=== PATIENT | male | born 1965 | race Caucasian/White ===

== ENCOUNTER 2025-01-27 07:08 | Emergency (ER) | payer OTHER ==
--- OUTSIDE RECORDS SUMMARY | 2025-01-27 07:11 | XMS REPORT | Continuity of Care Document ---
Author Name Unknown Address [address] [facility] [address] [place] [address] [facility] Address [address] [facility]. [address] [place] [address] Care Team Providers Care Librarian Name Role Phone DARIANA RAYMOND Primary Care Physician Yajairaa LAUREN Land Attending Clinician Unavailable Doctor Unassigned, [place] Attending Clinician U Bhumi Monet Attending Clinician [phone] Coco Guzman Attending Clinician [phone] MAGDALENA TORIBIO Attending Clinician Unavailab Magdalena Campos DO Attending Clinician Kaleb Dsouza MD Attending Clinician [phone] KALEB DSOUZA Attending Clinician Unavail able KALEB DSOUZA Attending Clinician Unavail able MAGDALENA TORIBIO Admitting Clinician Unavailab le Payers Payer Name Policy Type Policy Number Effective Date Expirati on Date Source [facility] [id number] 2022 00:00:00 Problems Condition Name Condition Details Condition Category Status Onset Date Resolution Date Last Treatment Date Treating Clinician Comments Source Gastroesop hageal reflux disease, unspecifie d whether esophagiti s present Gastroesop hageal reflux disease, unspecifie d whether esophagiti s present Disease Active 02-12 00:00: 00 Overview: Formattin g of this note might be different from the original. Added automatic ally from request for surgery [id number] [facility] Dysphagia, pharyngoes ophageal phase Dysphagia, pharyngoes ophageal phase Disease Active 02-12 00:00: 00 Overview: Formattin g of this note might be different from the original. Added automatic ally from request for surgery [id number] [facility] Family history of colon cancer Family history of colon cancer Disease Active 02-12 00:00: 00 Overview: Formattin g of this note might be different from the original. Added automatic ally from request for surgery [id number] [facility] Brachial neuritis or radiculiti s Brachial neuritis or radiculiti s Disease Active 02-20 00:00: 00 Overview: Formattin g of this note might be different from the original. Cervical/ LSICD10 Diagnosis Term [employer] [facility] Allergies, Adverse Reactions, Alerts Allergy Name Allergy Type Status Severity Reaction(s) Onset Date Inactive Date Treating Clinician Comments Source Penicill ins Propensi ty to adverse reaction s Active Unknown - See comments 12-27 00:00: 00 convulsio ns [facility] CODEINE DRUG INGREDI Active Unknown-Cmnt 12-27 00:00: 00 [facility] PENICILL INS Drug Class Active Unknown-Cmnt 12-27 00:00: 00 [facility] Penicill ins Propensi ty to adverse reaction s Active Unknown - See comments 12-27 00:00: 00 convulsio ns [facility] Codeine Propensi ty to adverse reaction s Active Unknown - See comments 12-27 00:00: 00 Eye swelling and itching [facility] Penicill ins Propensi ty to adverse reaction s Active Unknown - See comments 12-27 00:00: 00 convulsio ns [facility] Social History Social Habit Start Date Stop Date Quantity Comments Source [facility] to SARS-CoV-2 (event) 2022-12-06 00:00:00 2022-12-16 14:18:00 Not sure [facility] Alcohol intake 2021-01-20 00:00:00 2021-01-20 00:00:00 0 /d [facility] History of Social function 2020-07-02 00:00:00 2020-07-02 00:00:00 [facility] Tobacco Comment 2016-11-11 00:00:00 2016-11-11 00:00:00 2-3 PPD x's 30, quit smoking in 2004 [facility] Alcoholic beverage intake 2016-02-21 00:00:00 2016-02-21 00:00:00 0 /d [facility] Cigarettes smoked current (pack per day) - Reported 2016-01-08 00:00:00 2016-01-08 00:00:00 [facility] Cigarette pack-years 2016-01-08 00:00:00 2016-01-08 00:00:00 [facility] Tobacco use and exposure 2016-01-08 00:00:00 2016-01-08 00:00:00 Former smokeless tobacco user [facility] History of tobacco use 1975-05-30 00:00:00 2015-05-30 00:00:00 Snuff User [facility] Sex assigned at 1965 00:00:00 1965 00:00:00 [facility] Smoking Status Start Date Stop Date Source Ex-smoker 2016-01-08 00:00:00 2016-01-08 00:00:00 [facility] Medications Ordered Medication Name Filled Medication Name Start Date Stop Date Current Medication? Ordering Clinician Indication Dosage Frequency Signature (SIG) Comments Components Source ketorolac (TORADOL) injection 15 mg 12-16 23:15: 00 12-16 22:28 :00 No 15mg 15 mg, Slow IV Push, ONCE, 1 dose, On Wed12/16/22 at 1715, GIOVANY [facility] NaCl 0.9% (NS) bolus infusion 1,000 mL 12-16 21:30: 00 12-16 23:30 :00 No 1000mL at 999 mL/hr, 1,000 mL, IV Infusion, ONCE, 1 dose, On Wed12/16/22 at 1530, STAT [facility] methocarbam oL (ROBAXIN) injection 1,000 mg 12-16 21:15: 00 12-16 22:20 :00 No 1000mg 1,000 mg, Intravenou s, ONCE, 1 dose, On Wed12/16/22 at 1515, Routine [facility] cyclobenzap rine 5 mg tablet 12-16 00:00: 00 Yes [id number] 5mg Take 1 tablet by mouth 3 (three) times daily as needed for Muscle Spasms. [facility] selenium sulfide (SELSUN BLUE) 1 % suspension 01-02 00:00: 00 Yes [id number] Apply to area(s) daily. [facility] hydrocortis one 2.5 % cream 01-02 00:00: 00 Yes [id number] Apply to affected area(s) 2 (two) times daily as needed for Rash. [facility] clotrimazol e 1 % topical cream 01-02 00:00: 00 Yes [id number] Apply to area(s) 2 (two) times daily as needed for Rash. [facility] white petrolatum ointment 01-02 00:00: 00 Yes [id number] Apply to area(s) daily. [facility] white petrolatum ointment 01-02 00:00: 00 Yes [id number] Apply to area(s) daily. [facility] docusate 100 mg capsule 2015-11 00:00: 00 Yes 100mg Take 1 capsule by mouth 2 (two) times daily as needed for Constipati on. [facility] fluticasone 50 mcg/actuati on nasal spray 2015-11 00:00: 00 Yes 2{spray } Use 2 Sprays in each nostril daily. [facility] omeprazole 20 mg capsule 2015-11 00:00: 00 Yes 20mg Take 1 capsule by mouth daily. [facility] citalopram 10 mg tablet 2015-11 00:00: 00 Yes 20mg Take 2 tablets by mouth at bedtime. [facility] traMADOL 50 mg tablet 2015-11 00:00: 00 Yes 50mg Take 1 tablet by mouth every 6 (six) hours as needed for Pain (scale 4-6) or Pain (scale 7-10). [facility] ipratropium 17 mcg/actuati on inhaler 2015-11 00:00: 00 Yes 2{puff} Inhale 2 Puffs 4 (four) times daily. HG KOP [facility] divalproex 500 mg EC tablet 2015-11 00:00: 00 Yes 500mg Take 1 tablet by mouth every 12 (twelve) hours. [facility] albuterol (PROVENTIL HFA) 90 mcg/actuati on inhaler 2015-11 00:00: 00 Yes 2{puff} Inhale 2 Puffs every 6 (six) hours as needed for Wheezing or Shortness of Breath.HG KOP [facility] beclomethas one dipropionat e 80 mcg/actuati on inhaler 2015-11 00:00: 00 Yes 1{puff} Inhale 1 Puff 2 (two) times daily.HG KOP [facility] Immunizations Ordered Immunization Name Filled Immunization Name Date Status Comments Source Influenza Virus Vaccine - Whole 2015-12-30 00:00:00 Completed [facility] Influenza Virus Vaccine - Whole 2015-12-30 00:00:00 Completed [facility] Influenza Virus Vaccine - Whole 2015-12-30 00:00:00 Completed [facility] Influenza Virus Vaccine - Whole 2015-12-30 00:00:00 Completed [facility] Influenza Virus Vaccine - Whole 2015-12-30 00:00:00 Completed [facility] Influenza Virus Vaccine - Whole Unknown Completed [facility] Influenza Virus Vaccine - Whole Unknown Completed [facility] Vital Signs Vital Name Observation Time Observation Value Comments S [place] Systolic blood pressure 2022-12-16 23:30:00 124 mm[Hg] [facility] Diastolic blood pressure 2022-12-16 23:30:00 72 mm[Hg] [facility] Heart rate 2022-12-16 23:30:00 71 /min [facility] Respiratory rate 2022-12-16 23:30:00 15 /min [facility] Oxygen saturation in Arterial blood by Pulse oximetry 2022-12-16 23:30:00 100 /min [facility] Body temperature 2022-12-16 20:13:00 36.22 Joellen [facility] Body height 2022-12-16 20:13:00 190.5 cm [facility] Body weight 2022-12-16 20:13:00 109.317 kg [facility] BMI 2022-12-16 20:13:00 30.12 kg/m2 [facility] Procedures Procedure Date / Time Performed Performing Clinicia n Source XR CHEST 2 VW 2023-10-29 17:23:43 Bhumi Martinez [facility] XR CHEST 2 VW 2023-08-25 19:44:05 [facility], Unit [facility] BASIC METABOLIC PANEL (NA, K, CL, CO2, GLUCOSE, BUN, CREATININE, CA) 2022-12-16 22:17:00 Magdalena Toribio [facility] CBC WITH DIFF 2022-12-16 22:17:00 Magdalena Toribio U [facility] CT CERVICAL SPINE WO CONTRAST 2022-12-16 21:09:25 Magdalena Toribio [facility] CT HEAD WO CONTRAST 2022-12-16 21:09:25 Jeramie Toribio [facility] XR SHOULDER 2+ VW LEFT 2022-12-16 21:08:30 Magdalena Toribio [facility] MR THORACIC SPINE WO CONTRAST 2017-07-16 20:00:[address] [facility] XR CHEST 2 VW 2016-11-17 23:23:00 Coco Irizarry [facility] XR LUMBAR SPINE 1 VW 2016-11-12 14:42:00 Valente Hassan [facility] XR LUMBAR SPINE 1 VW 2016-11-12 14:04:00 Lauri reinoso Valente [facility] XR CERVICAL SPINE 2 VW 2016-02-21 06:30:00 Jc Benitez [facility] OPERATIVE NOTES 2016-02-20 05:01:00 Doctor Unass igned, [place] [facility] HOSPITAL ADMISSION 2016-02-19 05:01:00 Doctor Un assigned, [place] [facility] Encounters Start Date/Time End Date/Time Encounter Type Admission Type Attending [facility] Facility Care Department Encounter ID Source 2016-02-21 00:00:00 2025-01-13 04:18:27 Orders Only Doctor Unassigned, [place] Doctor Unassigned, [place] [facility] ([facility]) 1.2.840.114 350.1.13.10 4.2.7.2.686 [id number] [facility] 2016-06-24 00:00:00 2025-01-13 04:11:24 Orders Only Doctor Unassigned, [place] Doctor Unassigned, [place] [facility] ([facility]) 1.2.840.114 350.1.13.10 4.2.7.2.686 [id number] [facility] 2016-11-12 00:00:00 2025-01-13 04:00:24 Orders Only Doctor Unassigned, [place] Doctor Unassigned, [place] [facility] ([facility]) 1.2.840.114 350.1.13.10 4.2.7.2.686 [id number] [facility] 2016-11-12 00:00:00 2025-01-13 04:00:23 Orders Only Doctor Unassigned, [place] Doctor Unassigned, [place] [facility] ([facility]) 1.2.840.114 350.1.13.10 4.2.7.2.686 [id number] [facility] 2016-11-17 00:00:00 2025-01-13 04:00:11 Orders Only Doctor Unassigned, [place] Doctor Unassigned, [place] [facility] ([facility]) 1.2.840.114 350.1.13.10 4.2.7.2.686 [id number] [facility] 2017-07-16 00:00:00 2025-01-13 03:40:27 Orders Only Doctor Unassigned, [place] Doctor Unassigned, [place] [facility] ([facility] 1.2.840.114 350.1.13.10 4.2.7.2.686 [id number] [facility] 2023-10-29 10:21:29 2023-10-29 23:59:00 Hospital Encounter Bhumi Martinez [facility] 1.2.840.114 350.1.13.10 4.2.7.2.686 [id number] [facility] 2023-08-25 03:09:20 2023-08-25 23:59:00 Hospital Encounter Coco Guzman [facility] 1.2.840.114 350.1.13.10 4.2.7.2.686 [id number] [facility] 2022-12-16 14:15:00 2022-12-16 18:55:00 Emergency X MAGDALENA TORIBIO [facility] ERT [id number] [facility] 2022-12-16 14:15:00 2022-12-16 18:55:00 Emergency Magdalena Toribio [facility] 1.2.840.114 350.1.13.10 4.2.7.2.686 [id number] [facility] 2022-09-25 00:00:00 2022-09-25 00:00:00 Telephone Meet Kaleb [facility] 1.2840.114 350.1.13.10 4.2.7.2.686 [id number] [facility] 2022-09-24 00:00:00 2022-09-24 00:00:00 Telephone Meet Kaleb [facility]?PETRONAJamie [facility] 1.2.840.114 350.1.13.10 4.2.7.2.686 [id number] [facility] 2022-08-11 15:00:00 2022-08-11 15:00:00 Outpatient Sangeetha KALEB DSOUZA [facility] [id number] [facility] 2022-08-11 15:00:00 2022-08-11 15:00:00 Outpatient KAELB RAUSCH [facility] [id number] [facility] 2022-06-30 15:00:00 2022-06-30 15:00:00 Outpatient KALEB RAUSCH [facility] [id number] [facility] 2022-06-30 15:00:00 2022-06-30 15:00:00 Outpatient KALEB RAUSCH [facility] [id number] [facility] 2022-06-12 11:00:00 2022-06-12 11:00:00 Outpatient Sangeetha BRIONESEKALEB [facility] [id number] [facility] 2022-06-12 00:00:00 2022-06-12 00:00:00 Telephone [facility] 1.2.840.114 350.1.13.10 4.2.7.2.686 [id number] [facility] Results Test Description Test Time Test Comments Results Result Comments Source MRI THORACIC, SPINAL CANAL WITHOUT CONTRAST 21:57:00 *.*.*.*.*.*.*.*.*.*.*.*. *.*FINAL*.*.*.*.*.*.*.*. *.*.*.*.*.*.*MRI, THORACIC, SPINAL CANAL-[facility]DC PATIENTS, MRI, LUMBAR, SPINAL CANAL-[facility] PATIENTS HISTORY: BLE WEAKNESS COMPARISON: MRI lumbar spine dated . Lumbar spine radiograph dated101/13/2016. TECHNIQUE: Multiplanar multi weighted MRI of the thoracic and lumbar spine wasobtained without contrast. THORACIC SPINE MRI FINDINGS: There is straightening of thoracic kyphosis. Chronic anterior wedge compressiondeformity of T12 vertebral body that results in approximately 40% height lossand focal kyphotic deformity and moderate spinal canal narrowing. The background bone marrow signal is within normal limits. The thoracic cord is normal in caliber and demonstrates normal signal intensity. Schmorl's nodules are noted at multiple levels from T5 to T12. There is discdesiccation throughout the entire thoracic spine. There is multilevel mild to moderate facet arthrosis and ligamentum flavumhypertrophy superimposed on congenitally narrow spinal canal results inmultilevel mild spinal canal stenosis and up to moderate spinal canal stenosisat T7-T8. Multilevel mild neural foraminal narrowing. LUMBAR SPINE MRI FINDINGS Levoscoliosis is noted. Postlaminectomy changes are identified at L3-L5.Extensive susceptibility artifact in the surgical bed. The vertebral bodies are normal in height and alignment. The background bone marrow signal is within normal limits. The conus medullaris terminates at the level of 12-L1. The cauda equina nerveroots are unremarkable. There is ?T2/STIR hyperintense signal throughout the posterior paraspinal likelyreflective of edema or denervation. There is mild disc desiccation of L2-L3 and L4-L5. No destructive endplatechanges are noted. Multilevel degenerative changes as follows, L1-L2: Mild diffuse disc bulge, facet arthrosis and ligamentum flavum thickeningresults in mild bilateral neural foraminal narrowing. No high-grade spinal canalstenosis. L2-L3: Concentric disc bulging, moderate facet arthrosis and ligamentum flavumthickening results in severe right, mild left neural foraminal narrowing andmild spinal canal stenosis. L3-L4: Concentric disc bulging, severe facet arthrosis results [id number] neural foraminal narrowing. Spinal canal is decompressed atthis level. L4-L5: Diffuse disc bulge, severe facet arthrosis, left greater than the rightresults in severe left and mild right neural foraminal narrowing. Spinal canalis decompressed by laminectomy. L5-S1: Mild central disc bulging is without significant spinal canal stenosis orneuroforaminal narrowing. HUNTER CARR MD ?Personally interpreted by: MAURICE CACERES MD /Signed/ MAURICE CACERES MD [facility] CHEST 2 VIEWS 23:33:00 *.*.*.*.*.*.*.*.*.*.*.*. *.*FINAL*.*.*.*.*.*.*.*. *.*.*.*.*.*.*EXAM: CHEST, 2 VIEWS-STAT HISTORY: cough and lung crackles COMPARISON: 02/26/2016. FINDINGS: Linear opacities are noted in both lung bases. The opacities in the left lungbase were seen on the prior exam though the right lung base opacities are new.Changes are chronic pulmonary fibrosis with superimposed inflammatory congestionin both lower lungs. No pleural effusion or pneumothorax is seen. The heart is normal in size. No acute osseous abnormality is identified.ACDF and posterior spinal fusion hardware overlies the cervical spine. VIANEY RICCI MD ?Personally interpreted by: ALEYDA SIMONS MD /Signed/ ALEYDA SIMONS MD [facility] SPINE, LUMBAR, 1 VIEWS 01:24:00 *.*.*.*.*.*.*.*.*.*.*.*. *.*FINAL*.*.*.*.*.*.*.*. *.*.*.*.*.*.*SPINE, LUMBAR, 1 VIEWS-, SPINE, LUMBAR, 1 VIEWS- HISTORY: Male 51 years posterior laminectomy COMPARISON: None FINDINGS: 2 lateral intraoperative images of the lumbar spine are provided. On the study dated 7:53, a needle in the posterior soft tissues is positioned atthe level of L2-L3. On the study dated 8:30, radiodense probes are present in the posterior softtissues posterior to the L5 and L3 vertebral bodies. ?Personally interpreted by: PEDRO NOLASCO JR, MD /Signed/ PEDRO NOLASCO JR, MD [facility] SPINE, LUMBAR, 1 VIEWS 01:24:00 *.*.*.*.*.*.*.*.*.*.*.*. *.*FINAL*.*.*.*.*.*.*.*. *.*.*.*.*.*.*SPINE, LUMBAR, 1 VIEWS-, SPINE, LUMBAR, 1 VIEWS- HISTORY: Male 51 years posterior laminectomy COMPARISON: None FINDINGS: 2 lateral intraoperative images of the lumbar spine are provided. On the study dated 7:53, a needle in the posterior soft tissues is positioned atthe level of L2-L3. On the study dated 8:30, radiodense probes are present in the posterior softtissues posterior to the L5 and L3 vertebral bodies. ?Personally interpreted by: PEDRO NOLASCO JR, MD /Signed/ PEDRO NOLASCO JR, MD [facility] SPINE, CERVICAL 2 VIEWS 14:19:00 *.*.*.*.*.*.*.*.*.*.*.*. *.*FINAL*.*.*.*.*.*.*.*. *.*.*.*.*.*.*SPINE, CERVICAL 2 VIEWS-[facility] PATIENT HISTORY: 50-year-old male s/p c3-7 lami fusion COMPARISON: MRI cervical spine January 18, 2016 FINDINGS: The cervical spine demonstrates posterior fusion and laminectomy from C2to C6 ?and anterior fusion at C54and C5. Surgical galdino are seen overthe posterior neck soft tissues. Moderate spondylosis is presentthroughout the cervical spine. No hardware complications are visualized onthis cervical spine radiograph. Reinaldo Gay have reviewed this study and agree with the abovereport.MYRIAM GRIFFIN MD ?Personally interpreted by: REINALDO KEANE MD /Signed/ REINALDO KEANE MD [facility]
--- NOTE | 2025-01-27 07:44 | EDPHYS ---
Physician Documentation [facility] Name: Santos Patel Age: 59 yrs Sex: Male : 1965 Arrival Date: 01/27/2025 Time: 07:08 Bed 18 Private MD: ED Physician Manuel Breaux HPI: 01/27 07:39 This 59 yrs old Male presents to ER via Ambulatory with complaints of Problem With ec2 Urinary Catheter. 07:39 Patient arrives today with issue with his Jolly catheter. Has had his Jolly catheter ec2 for approximately 1 month, states that he has been having some urinary discomfort and is now urinating around the catheter. Denies any other concerns.. Historical: - Allergies: 07:32 No Known Allergies; ss - PSHx: 07:32 back sx; ss - Immunization history:: Adult Immunizations unknown. - Infectious Disease History:: Denies. - Social history:: Smoking status: Patient reports the use of cigarette tobacco products, smokes one pack cigarettes per day. ROS: 07:39 Constitutional: as per hpi ec2 Exam: 07:39 Constitutional: GEN: NAD Head: atraumatic Eyes: EOMI Ears: External ears are ec2 normal. CV: regular rate LUNGS: no respiratory distress ABD: non-distended SKIN: no evidence of rashes MSK: no evidence of trauma Vital Signs: 07:29 BP 111 / 69; Pulse 103; Resp 17; Temp 97.5(TE); Pulse Ox 98% on R/A; Weight 117.93 kg; ss Height 6 ft. 4 in. ; Pain 8/10; 08:47 BP 115 / 78; Pulse 85; Resp 16; Pulse Ox 99% ; bp 07:29 Body Mass Index 31.65 (117.93 kg, 193.04 cm) ss 07:29 Pain Scale: Adult ss MDM: 07:39 Medical Screening Exam initiated ec2 07:39 Data reviewed: vital signs, nurses notes. ED course: Patient arrives today for urinary ec2 Jolly catheter complications, will replace catheter and send UA.. 07:42 ED course: Jolly catheter replaced with significant cloudy appearance, with start the ec2 patient antibiotics.. 01/27 07:40 Order name: UAM ec2 01/27 08:10 Order name: Urine Culture EDMS 01/27 07:31 Order name: Rik; Complete Time: 07:53 ec2 Administered Medications: 07:53 Drug: Trimethoprim-Sulfamethoxazole PO (160 mg-800 mg (DS) 1 tablet PO once Route: PO; bp 07:53 Follow up: Response: No adverse reaction bp Disposition Summary: 01/27/25 07:43 Discharge Ordered Notes: Location: Home ec2 Condition: Stable ec2 Diagnosis - Other mechanical complication of urinary (indwelling) catheter ec2 Followup: ec2 - With: Private Physician - When: - Reason: Re-evaluation by your physician Discharge Instructions: - Discharge Summary Sheet ec2 - Indwelling Urinary Catheter Care, Adult, [id number] ec2 Forms: - Medication Reconciliation Form ec2 - Antibiotic Education ec2 - Prescription Opioid Use ec2 - Patient Portal Instructions ec2 - Leadership Thank You Letter ec2 Prescriptions: - Bactrim DS 800-160 mg Oral Tablet - take 1 tablet ORAL route every 12 hours for 7 days; 14 tablet; Refills: 0, ec2 Product Selection Permitted Signatures: Dispatcher [employer] Allyson Reilly RN RN ss Jesus Wall RN RN bp Manuel Breaux MD MD ec2
--- NOTE | 2025-01-27 07:44 | ER ---
Nurse's Notes [facility] Name: Santos Patel Age: 59 yrs Sex: Male : 1965 Arrival Date: 01/27/2025 Time: 07:08 Bed 18 Private MD: Diagnosis: Other mechanical complication of urinary (indwelling) catheter Presentation: 01/27 07:29 Chief complaint: Patient states: penile pain x 3 days. Pt believes his Niño catheter ss has slipped. Also reports urinating around catheter. Coronavirus screen: Client denies travel out of the [place] in the last 14 days. Ebola Screen: Patient denies exposure to infectious person. Patient denies travel to an Ebola-affected area in the 21 days before illness onset. Initial Sepsis Screen: Does the patient meet any 2 criteria? No. Patient's initial sepsis screen is negative. Does the patient have a suspected source of infection? No. Patient's initial sepsis screen is negative. Risk Assessment: Do you want to hurt yourself or someone else? Patient reports no desire to harm self or others. Onset of symptoms was January 24, 2025. 07:29 Method Of Arrival: Ambulatory ss 07:29 Acuity: JOLANTA 4 ss Triage Assessment: 07:32 General: Appears uncomfortable, Behavior is calm, cooperative. EENT:. Neuro: Level of ss Consciousness is awake, alert, obeys commands, Speech is normal. Respiratory: Respiratory effort is even, unlabored. : Reports indwelling niño catheter noted. To gravity drainage. Pt c/o penile pain 8/10 x 3 days. Also reports urinating around catheter tubing. Historical: - Allergies: 07:32 No Known Allergies; ss - PSHx: 07:32 back sx; ss - Immunization history:: Adult Immunizations unknown. - Infectious Disease History:: Denies. - Social history:: Smoking status: Patient reports the use of cigarette tobacco products, smokes one pack cigarettes per day. Screenin:56 [facility] ED Fall Risk Assessment (Adult) History of falling in the last 3 months, bp including since admission No falls in past 3 months (0 pts) Confusion or Disorientation No (0 pts) Intoxicated or Sedated No (0 pts) Impaired Gait Yes (1 pt) Mobility Assist Device Used Yes (1 pt) Altered Elimination Yes (1 pt) Score/Fall Risk Level 3 or more points = High Risk Oriented to surroundings. Abuse screen: Denies threats or abuse. Denies injuries from another. Nutritional screening: No deficits noted. Tuberculosis screening: No symptoms or risk factors identified. Assessment: 07:30 General: Appears in no apparent distress. uncomfortable, Behavior is cooperative, bp appropriate for age, anxious. Pain: Complains of pain in pelvis. : Niño in place to gravity drainage. Vital Signs: 07:29 BP 111 / 69; Pulse 103; Resp 17; Temp 97.5(TE); Pulse Ox 98% on R/A; Weight 117.93 kg; ss Height 6 ft. 4 in. ; Pain 8/10; 08:47 BP 115 / 78; Pulse 85; Resp 16; Pulse Ox 99% ; bp 07:29 Body Mass Index 31.65 (117.93 kg, 193.04 cm) ss 07:29 Pain Scale: Adult ss ED Course: 07:12 Patient arrived in ED. im 07:13 Manuel Breaux MD is Attending Physician. ec2 07:22 Jesus Wall, RN is Primary Nurse. bp 07:32 Triage completed. ss 07:32 Arm band placed on right wrist. ss 07:54 No provider procedures requiring assistance completed. Niño cath inserted, using bp sterile technique, 16 Fr., by ri, balloon inflated, to gravity drainage, urine specimen collected. returned cloudy urine. Patient tolerated well. Niño cath removed intact, balloon deflated. Patient did not have IV access during this emergency room visit. 07:56 Patient has correct armband on for positive identification. bp Administered Medications: 07:53 Drug: Trimethoprim-Sulfamethoxazole PO (160 mg-800 mg (DS) 1 tablet PO once Route: PO; bp 07:53 Follow up: Response: No adverse reaction bp Medication: 08:48 VIS not applicable for this client. bp Outcome: 07:43 Discharge ordered by . ec2 08:47 Discharged to home via wheelchair, bp 08:47 Condition: stable 08:47 Discharge instructions given to patient, Instructed on discharge instructions, follow up and referral plans. medication usage, Demonstrated understanding of instructions, follow-up care, medications, Prescriptions given X 1, 08:48 Patient left the ED. bp Signatures: Allyson Dillon RN RN Jesus Wall, RN RN bp Shannon Smith Edwin, MD MD ec2
[2025-01-27] MEDS ORDERED: SMZ./TMP. 800/160 MG TABLET ONE (07:52)
[2025-01-27 08:07] LABS: Specific Gravity 1.019 (1.005-1.030); Sqamous Epithelial None Seen /HPF (None Seen); Urine Bacteria 20-50 /HPF (<20); Urine Bilirubin NEGATIVE (Negative); Urine Blood 3+ (Negative); Urine Clarity Extremely Turbid (Clear); Urine Color Light-Orange (Yellow); Urine Culture Reflex Order REFLEXED; Urine Glucose NEGATIVE (Negative); Urine Ketones TRACE (Negative); Urine Micro Reflex YN NO BILL MICROSCOPIC; Urine Mucus Slight /HPF (None Seen); Urine Nitrite 2+ (Negative); Urine Protein 3+ (Negative); Urine RBC >50 /HPF (None Seen); Urine Triple Phosphate Crystal Few /HPF (None Seen); Urine Urobilinogen 2+ (Normal); Urine WBC >50 /HPF (<5); Urine WBC Clump Many /HPF (None Seen); Urine pH 7.5 (5.0-7.0)
[2025-01-27 08:53] VITALS: TEMP 97.5
[2025-01-27 08:54] VITALS: BP 115/78; O2SAT 99
== END 2025-01-27 08:48 | disposition home or self-care (01) ==
LOC: ER 07:08
DX: T83.038A Leakage of other urinary catheter, initial encounter (principal); F17.210 Nicotine dependence, cigarettes, uncomplicated
CPT/HCPCS: 51702; 81001; 87077; 87086; 87088; 87186; 99284

== ENCOUNTER 2025-02-18 20:14 | Emergency (ER) | payer OTHER ==
--- OUTSIDE RECORDS SUMMARY | 2025-02-18 20:18 | XMS REPORT | Continuity of Care Document ---
Author Name Unknown Address [address] [facility] [address] [place] [address] [facility] Address [address] [facility] [facility] [address] [place] [address] Care Team Providers Care Medical Record Specialist Name Role Phone PCP, PATIENT DOES NOT HAVE A Primary Care Physic melissa Unavailable LAUREN WINSLOW Attending Clinician Unavailable BATSHEVA KENDRICK Attending Clinician UnavailBATSHEVA Gonsalez Attending Clinician Unavailab NELLIE Suarez Attending Clinician Unavailable WINSOME GALLARDO Attending Clinician Unavailtyler celeste Doctor Unassigned, [place] Attending Clinician U Bhumi Monet Attending Clinician [phone] Coco Guzman Attending Clinician [phone] MAGDALENA TORIBIO Attending Clinician Unavailab Magdalena Campos DO Attending Clinician Kaleb Dsouza MD Attending Clinician KALEB DSOUZA Attending Clinician Unavail able KALEB DSOUZA Attending Clinician Unavail able MAGDALENA TORIBIO Admitting Clinician Unavailab alysa Payers Payer Name Policy Type Policy Number Effective Date Expirati on Date Source [place] [facility] [id number] 2024 00:00:00 [facility] [id number] 2022 00:00:00 Problems Condition Name Condition Details [...] Added automatic ally from request for surgery [id number] [facility] Dysphagia, pharyngoes ophageal phase Dysphagia, pharyngoes ophageal phase Disease Active 02-12 00:00: 00 Overview: Formattin g of this note might be different from the original. Added automatic ally from request for surgery [id number] [facility] Family history of colon cancer Family history of colon cancer Disease Active 02-12 00:00: 00 Overview: Formattin g of this note might be different from the original. Added automatic ally from request for surgery [id number] [facility] Brachial neuritis or radiculiti s Brachial neuritis or radiculiti s Disease Active 02-20 00:00: 00 Overview: Formattin g of this note might be different from the original. Cervical/ LSICD10 Diagnosis Term Business Information Manager Utility [facility] Allergies, Adverse Reactions, Alerts Allergy Name Allergy Type Status Severity Reaction(s) Onset Date Inactive Date Treating Clinician Comments Source Penicill ins Propensi ty to adverse reaction s Active Unknown - See comments 12-27 00:00: 00 convulsio ns [facility] CODEINE DRUG INGREDI Active Unknown-Cmnt 12-27 00:00: 00 [facility] PENICILL INS Drug Class Active Unknown-Cmnt 12-27 00:00: 00 [facility] Penicill ins Propensi ty to adverse reaction s Active Unknown - See comments 12-27 00:00: 00 convulsio ns [facility] Codeine Propensi ty to adverse reaction s Active Unknown - See comments 12-27 00:00: 00 Eye swelling and itching [facility] Penicill ins Propensi ty to adverse reaction s Active Unknown - See comments 12-27 00:00: 00 convulsio ns [facility] Social History Social Habit Start Date Stop Date Quantity Comments Source Sexual orientation U [facility] Exposure to SARS-CoV-2 (event) 2022-12-06 00:00:00 2022-12-16 14:18:00 Not sure [facility] Alcohol intake 2021-01-20 00:00:00 2021-01-20 00:00:00 0 /d [facility] History of Social function 2020-07-02 00:00:00 2020-07-02 00:00:00 [facility] Tobacco Comment 2016-11-11 00:00:00 2016-11-11 00:00:00 2-3 PPD x's 30, quit smoking in 2004 [facility] Alcoholic beverage intake 2016-02-21 00:00:00 2016-02-21 00:00:00 0 /d [facility] Cigarettes smoked current (pack per day) - Reported 2016-01-08 00:00:00 2016-01-08 00:00:00 [facility] Cigarette pack-years 2016-01-08 00:00:00 2016-01-08 00:00:00 [facility] Tobacco use and exposure 2016-01-08 00:00:00 2016-01-08 00:00:00 Former smokeless tobacco user [facility] History of tobacco use 1975-05-30 00:00:00 2015-05-30 00:00:00 Snuff User [facility] Sex assigned at 1965 00:00:00 1965 00:00:00 [facility] Smoking Status Start Date Stop Date Source Ex-smoker 2016-01-08 00:00:00 2016-01[facility]08 [facility] Ordered Medication Name Filled Medication Name Start Date Stop Date Current Medication? Ordering Clinician Indication Dosage Frequency Signature (SIG) Comments Components Source ketorolac (TORADOL) injection 15 mg 12-16 23:15: 00 12-16 22:28 :00 No 15mg 15 mg, Slow IV Push, ONCE, 1 dose, On Wed12/16/22 at 1715, GIOVANY [facility] NaCl 0.9% (NS) bolus infusion 1,000 mL 12-16 21:30: 00 12-16 23:30 :00 No 1000mL at 999 mL/hr, 1,000 mL, IV Infusion, ONCE, 1 dose, On Wed12/16/22 at 1530, STAT [facility] methocarbam oL (ROBAXIN) injection 1,000 mg 12-16 21:15: 00 12-16 22:20 :00 No 1000mg 1,000 mg, Intravenou s, ONCE, 1 dose, On Wed12/16/22 at 1515, Routine [facility] cyclobenzap rine 5 mg tablet 12-16 00:00: 00 Yes [id number] 5mg Take 1 tablet by mouth 3 (three) times daily as needed for Muscle Spasms. [facility] selenium sulfide (SELSUN BLUE) 1 % suspension 01-02 00:00: 00 Yes [id number] Apply to area(s) daily. [facility] hydrocortis one 2.5 % cream 01-02 00:00: 00 Yes [id number] Apply to affected area(s) 2 (two) times daily as needed for Rash. [facility] clotrimazol e 1 % topical cream 01-02 00:00: 00 Yes [id number] Apply to area(s) 2 (two) times daily as needed for Rash. [facility] white petrolatum ointment 01-02 00:00: 00 Yes [id number] Apply to area(s) daily. [facility] white petrolatum ointment 01-02 00:00: 00 Yes [id number] Apply to area(s) daily. [facility] citalopram 10 mg tablet 2015-11 00:00: 00 Yes 20mg Take 2 tablets by mouth at bedtime. [facility] traMADOL 50 mg tablet 2015-11 00:00: 00 Yes 50mg Take 1 tablet by mouth every 6 (six) hours as needed for Pain (scale 4-6) or Pain (scale 7-10). [facility] ipratropium 17 mcg/actuati on inhaler 2015-11 00:00: 00 Yes 2{puff} Inhale 2 Puffs 4 (four) times daily. HG KOP [facility] divalproex 500 mg EC tablet 2015-11 00:00: 00 Yes 500mg Take 1 tablet by mouth every 12 (twelve) hours. [facility] albuterol (PROVENTIL HFA) 90 mcg/actuati on inhaler 2015-11 00:00: 00 Yes 2{puff} Inhale 2 Puffs every 6 (six) hours as needed for Wheezing or Shortness of Breath.HG KOP [facility] beclomethas one dipropionat e 80 mcg/actuati on inhaler 2015-11 00:00: 00 Yes 1{puff} Inhale 1 Puff 2 (two) times daily.HG KOP [facility] docusate 100 mg capsule 2015-11 00:00: 00 Yes 100mg Take 1 capsule by mouth 2 (two) times daily as needed for Constipati on. [facility] fluticasone 50 mcg/actuati on nasal spray 2015-11 00:00: 00 Yes 2{spray } Use 2 Sprays in each nostril daily. HG [facility] omeprazole 20 mg capsule 2015-11 00:00: 00 Yes 20mg Take 1 capsule by mouth daily. [facility] Immunizations Ordered Immunization Name Filled Immunization Name Date Status Comments Source Influenza Virus Vaccine - Whole 2015-12-30 00:00:00 Completed [facility] Influenza Virus Vaccine - Whole 2015-12-30 00:00:00 Completed [facility] Influenza Virus Vaccine - Whole 2015-12-30 00:00:00 Completed [facility] Influenza Virus Vaccine - Whole 2015-12-30 00:00:00 Completed [facility] Influenza Virus Vaccine - Whole 2015-12-30 00:00:00 Completed [facility] Influenza Virus Vaccine - Whole Unknown Completed [facility] Influenza Virus Vaccine - Whole Unknown Completed [facility] Vital Signs Vital Name Observation Time Observation Value Comments S ourgiovanni Systolic blood pressure 2022-12-16 23:30:00 124 mm[Hg] [facility] Diastolic blood pressure 2022-12-16 23:30:00 72 mm[Hg] [facility] Heart rate 2022-12-16 23:30:00 71 /min [facility] Respiratory rate 2022-12-16 23:30:00 15 /min [facility] Oxygen saturation in Arterial blood by Pulse oximetry 2022-12-16 23:30:00 100 /min [place] [facility] Body temperature 2022-12-16 20:13:00 36.22 Joellen [facility] Body height 2022-12-16 20:13:00 190.5 cm [facility] Body weight 2022-12-16 20:13:00 109.317 kg [facility] BMI 2022-12-16 20:13:00 30.12 kg/m2 [facility] Procedures Procedure Date / Time Performed Performing Clinicia n Source XR CHEST 2 VW 2023-10-29 17:23:43 Bhumi Martinez [facility] XR CHEST 2 2023-08-25 19:44:05 Cmc/Tdcj, Unit [facility] BASIC METABOLIC PANEL (NA, K, CL, CO2, GLUCOSE, BUN, CREATININE, CA) 2022-12-16 22:17:00 Magdalena Toribio [facility] CBC WITH DIFF 2022-12-16 22:17:00 Magdalena Toribio U [facility] CT CERVICAL SPINE WO CONTRAST 2022-12-16 21:09:25 Magdalena Toribio [facility] CT HEAD WO CONTRAST 2022-12-16 21:09:25 Jeramie Toribio [facility] XR SHOULDER 2+ VW LEFT 2022-12-16 21:08:30 Magdalena Toribio [facility] MR THORACIC SPINE WO CONTRAST 2017-07-16 20:00:00 Polo Espinosa [facility] XR CHEST 2 VW 2016-11-17 23:23:00 Coco Irizarry [facility] XR LUMBAR SPINE 1 2016-11-12 14:42:00 Lauri reinoso Valente [facility] XR LUMBAR SPINE 1 2016-11-12 14:04:00 Lauri reinoso [facility] XR CERVICAL SPINE 2 2016-02-21 06:30:00 Jc Benitez [facility] OPERATIVE NOTES 2016-02-20 05:01:00 Doctor Unass igned, [place] [facility] HOSPITAL ADMISSION 2016-02-19 05:01:00 Doctor Un assigned, [place] [facility] Encounters Start Date/Time End Date/Time Encounter Type Admission Type Attending [facility] Facility Care Department Encounter ID Source 2025-02-22 15:30:00 2025-02-22 15:30:00 Outpatient NELLIE CARPENTER [facility] [id number] [facility] 2025-02-16 14:00:00 2025-02-16 14:00:00 Outpatient R WINSOME GALLARDO [facility] [id number] [facility] 2025-02-07 14:00:00 2025-02-07 15:15:04 Outpatient R BATSHEVA KENDRICK OGECHUKWU [facility] [id number] [facility] 2016-02-21 00:00:00 2025-01-13 04:18:27 Orders Only Doctor Unassigned, [place] Doctor Unassigned, [place] [facility] 1.2.840.114 350.1.13.10 4.2.7.2.686 [id number] [facility] 2016-06-24 00:00:00 2025-01-13 04:11:24 Orders Only Doctor Unassigned, [place] Doctor Unassigned, [place] [facility] 1.2.840.114 350.1.13.10 4.2.7.2.686 [id number] [facility] 2016-11-12 00:00:00 2025-01-13 04:00:24 Orders Only Doctor Unassigned, [place] Doctor Unassigned, [place] [facility] ([facility]) 1.2.840.114 350.1.13.10 4.2.7.2.686 [id number] [facility] 2016-11-12 00:00:00 2025-01-13 04:00:23 Orders Only Doctor Unassigned, [place] Doctor Unassigned, [place] [facility] ([facility]) 1.2.840.114 350.1.13.10 4.2.7.2.686 [id number] [facility] 2016-11-17 00:00:00 2025-01-13 04:00:11 Orders Only Doctor Unassigned, [place] Doctor Unassigned, [place] [facility] ([facility]) 1.2.840.114 350.1.13.10 4.2.7.2.686 [id number] [facility] 2017-07-16 00:00:00 2025-01-13 03:40:27 Orders Only Doctor Unassigned, [place] Doctor Unassigned, [place] [facility] ([facility]) 1.2.840.114 350.1.13.10 4.2.7.2.686 [id number] [facility] 2023-10-29 10:21:29 2023-10-29 23:59:00 Hospital Encounter Bhumi Martinez [facility] 1.2.840.114 350.1.13.10 4.2.7.2.686 [id number] [facility] 2023-08-25 03:09:20 2023-08-25 23:59:00 Hospital Encounter Coco Guzman [facility] 1.2.840.114 350.1.13.10 4.2.7.2.686 [id number] [facility] 2022-12-16 14:15:00 2022-12-16 18:55:00 Emergency X MAGDALENA TORIBIO [facility] E[facility] [id number] [facility] 2022-12-16 14:15:00 2022-12-16 18:55:00 Emergency Magdalena Toribio [facility] 1.2.840.114 350.1.13.10 4.2.7.2.686 [id number] [facility] 2022-09-25 00:00:00 2022-09-25 00:00:00 Telephone Kaleb Dsouza Lucio [facility] 1.2.840.114 350.1.13.10 4.2.7.2.686 [id number] [facility] 2022-09-24 00:00:00 2022-09-24 00:00:00 Telephone [facility] 1.2.840.114 350.1.13.10 4.2.7.2.686 [id number] [facility] 2022-08-11 15:00:00 2022-08-11 15:00:00 Outpatient KALEB RAUSCH [facility] [id number] [facility] 2022-08-11 15:00:00 2022-08-11 15:00:00 Outpatient KALEB RAUSCH [facility] [id number] [facility] 2022-06-30 15:00:00 2022-06-30 15:00:00 Outpatient KALEB RAUSCH [facility] [id number] [facility] 2022-06-30 15:00:00 2022-06-30 15:00:00 Outpatient KALEB RAUSCH [facility] [id number] [facility] 2022-06-12 11:00:00 2022-06-12 11:00:00 Outpatient KALEB RAUSCH [facility] [id number] [facility] 2022-06-12 00:00:00 2022-06-12 00:00:00 Telephone [facility] Dsouza [facility] 1.2.840.114 350.1.13.10 4.2.7.2.686 [id number] [facility] Results Test Description Test Time Test [...] Concentric disc bulging, severe facet arthrosis results [id number] neural foraminal narrowing. Spinal canal is decompressed atthis level. L4-L5: Diffuse disc bulge, severe facet arthrosis, left greater than the rightresults in severe left and mild right neural foraminal narrowing. Spinal canalis decompressed by laminectomy. L5-S1: Mild central disc bulging is without significant spinal canal stenosis orneuroforaminal narrowing. HUNTER CARR MD ?Personally interpreted by: MAURICE CACERES MD /Signed/ MAURICE CACERES MD [facility] CHEST 2 VIEWS 23:33:00 *.*.*.*.*.*.*.*.*.*.*.*. *.*FINAL*.*.*.*.*.*.*.*. *.*.*.*.*.*.*EXAM: [...] ALEYDA SIMONS MD /Signed/ ALEYDA SIMONS MD [facility] SPINE, LUMBAR, 1 VIEWS 01:24:00 *.*.*.*.*.*.*.*.*.*.*.*. *.*FINAL*.*.*.*.*.*.*.*. [...] JR, MD /Signed/ PEDRO NOLASCO JR, MD [facility] SPINE, LUMBAR, 1 VIEWS 01:24:00 *.*.*.*.*.*.*.*.*.*.*.*. *.*FINAL*.*.*.*.*.*.*.*. [...] JR, MD /Signed/ PEDRO NOLASCO JR, MD [facility] SPINE, CERVICAL 2 VIEWS 14:19:00 *.*.*.*.*.*.*.*.*.*.*.*. *.*FINAL*.*.*.*.*.*.*.*. *.*.*.*.*.*.*SPINE, CERVICAL 2 VIEWS[facility] PATIENT HISTORY: 50-year-old male s/p c3-7 lami [...] REINALDO KEANE MD /Signed/ REINALDO KEANE MD [facility]
[2025-02-18] MEDS ORDERED: NA CHLORIDE 0.9% 0 ML ONE (20:28)
[2025-02-18 22:45] LABS: Calcium Oxalate Crystals- Ur Few /HPF (None Seen); Specific Gravity 1.026 (1.005-1.030); Sqamous Epithelial None Seen /HPF (None Seen); Urine Bacteria <20 /HPF (<20); Urine Bilirubin NEGATIVE (Negative); Urine Blood 3+ (OVER) (Negative); Urine Clarity Extremely Turbid (Clear); Urine Color Yellow (Yellow); Urine Culture Reflex Order REFLEXED; Urine Glucose NEGATIVE (Negative); Urine Ketones TRACE (Negative); Urine Microscopic Reflex YN ORDER UMIC; Urine Mucus Slight /HPF (None Seen); Urine Nitrite 2+ (Negative); Urine Protein 2+ (Negative); Urine RBC >50 /HPF (None Seen); Urine Urobilinogen 1+ (Normal); Urine WBC >50 /HPF (<5)
--- NOTE | 2025-02-18 22:50 | EDPHYS ---
Physician Documentation [facility] Name: Santos Patel Age: 59 yrs Sex: Male : 1965 Arrival Date: 02/18/2025 Time: 20:14 Bed 14 Private MD: ED Physician Gary Yeung HPI: 02/18 20:57 This 59 yrs old Male presents to ER via Wheelchair with complaints of Problem With kb Urinary Catheter, Pain. 20:57 Pt is a 59 year old male who presents for leaking around niño and it not draining that kb started today. Denies fever. . Historical: - Allergies: 20:31 PENICILLINS; jb4 - PMHx: 20:31 COPD; hep C; emphysema; urinary incontinence; jb4 - PSHx: 20:31 back sx; jb4 - Immunization history:: Adult Immunizations up to date. - Infectious Disease History:: Denies. - Social history:: Smoking status: Patient reports the use of cigarette tobacco products, smokes one pack cigarettes per day. ROS: 20:56 Constitutional: As per HPI kb Exam: 20:56 Constitutional: This is a well developed, well nourished patient who is awake, alert, kb and in no acute distress. Head/Face: Normocephalic, atraumatic. ENT: Moist Mucous membranes Cardiovascular: Regular rate Respiratory: Respirations even and unlabored. No increased work of breathing. Talking in full sentences Abdomen/GI: Soft, non-tender. No distention Back: No spinal tenderness. No costovertebral tenderness. Full range of motion. Vital Signs: 20:23 BP 135 / 89; Pulse 94; Resp 19; Pulse Ox 97% on R/A; ay 20:27 BP 135 / 89; Pulse 96; Resp 16; Temp 97.6(O); Pulse Ox 96% on R/A; Weight 111.58 kg jb4 (R); Height 6 ft. 3 in. (R); Pain 7/10; 21:00 BP 113 / 99; Pulse 85; Resp 16; Pulse Ox 96% ; ay 22:00 BP 129 / 86; Pulse 80; Resp 17; Pulse Ox 97% on R/A; ay 20:27 Body Mass Index 30.75 (111.58 kg, 190.5 cm) jb4 20:27 Pain Scale: Adult jb4 MDM: 20:20 Medical Screening Exam initiated kb 22:48 Data reviewed: vital signs, nurses notes. kb 22:48 Differential diagnosis: catheter malfunction, uti. Counseling: I had a detailed kb discussion with the patient and/or guardian regarding the historical points, exam findings, and any diagnostic results supporting the discharge/admit diagnosis, lab results, the need for outpatient follow up, a urologist, to return to the emergency department if symptoms worsen or persist or if there are any questions or concerns that arise at home. 02/18 20:23 Order name: Urinalysis w/ reflexes; Complete Time: 22:47 kb 02/18 22:48 Order name: Urine Culture EDMS 02/18 20:23 Order name: Niño; Complete Time: 22:41 kb Administered Medications: 22:41 Not Given (Other Intervention Used): lidocainegel 2 % 1 application Mucous Membrane onceay 22:58 Drug: Ciprofloxacin PO 500 mg PO once Route: PO; ay 23:03 Follow up: Response: No adverse reaction ay 22:58 Drug: Hydrocodone-Acetaminophen PO (7.5 mg-325 mg) 1 tabs PO once Route: PO; ay 23:02 Follow up: Response: No adverse reaction ay Disposition: 02/19 03:54 Co-signature as Attending Physician, Gary Yeung MD I agree with the assessment sp4 and plan of care. I reviewed the patient's care provided by the Advanced Practice Provider and agree with the diagnosis and treatment plan. Disposition Summary: 02/18/25 22:49 Discharge Ordered Notes: Location: Home kb Condition: Stable kb Diagnosis - Leakage of urinary (indwelling) catheter kb - UTI/ Urinary tract infection, site not specified kb Followup: kb - With: Emergency Department - When: As needed - Reason: Worsening of condition Followup: kb - With: Private Physician - When: 2 - 3 days - Reason: Recheck today's complaints, Continuance of care, Re-evaluation by your physician Discharge Instructions: - Discharge Summary Sheet kb - Urinary Tract Infection, Adult, Bqmz-iv-Zhsg kb - Indwelling Urinary Catheter Care, Adult, Owei-qi-Pwvj kb Forms: - Medication Reconciliation Form kb - Antibiotic Education kb - Prescription Opioid Use kb - Patient Portal Instructions kb - Leadership Thank You Letter kb Prescriptions: - Cipro 500 mg Oral tablet - take 1 tablet ORAL route every 12 hours for 10 days; 20 tablet; Refills: 0, kb Product Selection Permitted Signatures: Dispatcher [employer] Lisa Corrigan, Luke Latham, RN RN jb4 Gary Yeung MD MD sp4 Kate Herrera RN RN ay
--- NOTE | 2025-02-18 22:50 | ER ---
Nurse's Notes [facility] Name: Santos Patel Age: 59 yrs Sex: Male : 1965 Arrival Date: 02/18/2025 Time: 20:14 Bed 14 Private MD: Diagnosis: Leakage of urinary (indwelling) catheter;UTI/ Urinary tract infection, site not specified Presentation: 02/18 20:27 Chief complaint: Patient states: My catheter is clogged, I am peeing around it, and I jb4 am having purulent drainage from my penis. Coronavirus screen: At this time, the client does not indicate any symptoms associated with coronavirus-19. Ebola Screen: No symptoms or risks identified at this time. Initial Sepsis Screen: Does the patient meet any 2 criteria? No. Patient's initial sepsis screen is negative. Does the patient have a suspected source of infection? No. Patient's initial sepsis screen is negative. Risk Assessment: Do you want to hurt yourself or someone else? Patient reports no desire to harm self or others. Onset of symptoms was February 18, 2025. Transition of care: patient was not received from another setting of care. 20:27 Method Of Arrival: Wheelchair jb4 20:27 Acuity: JOLANTA 3 jb4 Triage Assessment: 20:27 General: Appears in no apparent distress. comfortable, Behavior is calm, cooperative, jb4 appropriate for age. Pain: Complains of pain in back Pain does not radiate. Pain currently is 7 out of 10 on a pain scale. Neuro: Level of Consciousness is awake, alert, obeys commands, Oriented to person, place, time, situation. Cardiovascular: Patient's skin is warm and dry. Respiratory: Airway is patent Respiratory effort is even, unlabored, Respiratory pattern is regular, symmetrical. : Jolly in place to gravity drainage Reports discharge, from penis that is Purulent. Derm: Skin is intact, Skin is pink, warm \T\ dry. Historical: - Allergies: 20:31 PENICILLINS; jb4 - PMHx: 20:31 COPD; hep C; emphysema; urinary incontinence; jb4 - PSHx: 20:31 back sx; jb4 - Immunization history:: Adult Immunizations up to date. - Infectious Disease History:: Denies. - Social history:: Smoking status: Patient reports the use of cigarette tobacco products, smokes one pack cigarettes per day. Screenin:22 [facility] ED Fall Risk Assessment (Adult) History of falling in the last 3 months, ay including since admission No falls in past 3 months (0 pts) Confusion or Disorientation No (0 pts) Intoxicated or Sedated No (0 pts) Impaired Gait Yes (1 pt) Mobility Assist Device Used Yes (1 pt) Altered Elimination No (0 pt) Score/Fall Risk Level 0 - 2 = Low Risk Oriented to surroundings, Maintained a safe environment, Educated pt \T\ family on fall prevention, incl call for assistance when getting out of bed. Abuse screen: Denies threats or abuse. Nutritional screening: No deficits noted. Tuberculosis screening: No symptoms or risk factors identified. Assessment: 20:22 General: Appears in no apparent distress. uncomfortable, Behavior is calm, cooperative. ay Pain: Complains of pain in back. Neuro: Level of Consciousness is awake, alert, obeys commands, Oriented to person, place, time, situation, Speech is normal. Cardiovascular: Denies chest pain, nausea, vomiting, Capillary refill < 3 seconds. Respiratory: Airway is patent Respiratory effort is even, unlabored, Respiratory pattern is regular, symmetrical. GI: Patient currently denies nausea, pain. : Jolly in place Urine is cloudy, Reports. EENT: No signs and/or symptoms were reported regarding the EENT system. Derm: No signs and/or symptoms reported regarding the dermatologic system. Vital Signs: 20:23 BP 135 / 89; Pulse 94; Resp 19; Pulse Ox 97% on R/A; ay 20:27 BP 135 / 89; Pulse 96; Resp 16; Temp 97.6(O); Pulse Ox 96% on R/A; Weight 111.58 kg jb4 (R); Height 6 ft. 3 in. (R); Pain 7/10; 21:00 BP 113 / 99; Pulse 85; Resp 16; Pulse Ox 96% ; ay 22:00 BP 129 / 86; Pulse 80; Resp 17; Pulse Ox 97% on R/A; ay 20:27 Body Mass Index 30.75 (111.58 kg, 190.5 cm) jb4 20:27 Pain Scale: Adult 4 ED Course: 20:19 Patient arrived in ED. gm2 20:19 Lisa Ruff, [facility] kb 20:19 Gary Yeung MD is Attending Physician. kb 20:28 Triage completed. jb4 20:29 Arm band placed on right wrist. jb4 21:06 Kate Herrera, RN is Primary Nurse. ay 22:30 Coud inserted, using sterile technique, 16 Fr. Patient tolerated well. oe 22:41 Urinalysis w/ reflexes Sent. ay 23:13 Patient did not have IV access during this emergency room visit. ay Administered Medications: 22:41 Not Given (Other Intervention Used): lidocainegel 2 % 1 application Mucous Membrane onceay 22:58 Drug: Ciprofloxacin PO 500 mg PO once Route: PO; ay 23:03 Follow up: Response: No adverse reaction ay 22:58 Drug: Hydrocodone-Acetaminophen PO (7.5 mg-325 mg) 1 tabs PO once Route: PO; ay 23:02 Follow up: Response: No adverse reaction ay Outcome: 22:49 Discharge ordered by MD. kb 23:13 Discharged to home via wheelchair, ay 23:13 Condition: stable 23:13 Discharge instructions given to patient, Instructed on discharge instructions, follow up and referral plans. Demonstrated understanding of instructions, follow-up care, medications, Prescriptions given X 1, 23:15 Patient left the ED. ay Signatures: Lisa Ruff FNP-C [employer]ICE SALES REPRESENTATIVE-Luke Xie, RN RN jb4 Nick Benjamin Ginger 2 Kate Herrera, ADITYA RN ay
[2025-02-18] MEDS ORDERED: CIPROFLOXACIN HCL 500 MG TAB ONE (22:56)
[2025-02-18] MEDS ORDERED: HYDROCODONE/APAP 7.5/325 MG TAB ONE (22:56)
[2025-02-18 23:22] VITALS: TEMP 97.6
[2025-02-18 23:25] VITALS: BP 129/86; O2SAT 97
== END 2025-02-18 23:15 | disposition home or self-care (01) ==
LOC: ER 20:14
DX: T83.038A Leakage of other urinary catheter, initial encounter (principal); N39.0 Urinary tract infection, site not specified; F17.210 Nicotine dependence, cigarettes, uncomplicated
CPT/HCPCS: 81001; 87077; 87086; 87088; 87186; 99284; J7050